=== PATIENT | male | born 1955 | race Caucasian/White ===

== ENCOUNTER 2021-02-21 16:06 | Emergency (ER) | payer MEDICARE, OTHER ==
[~2021-02-21 16:06] MED LIST: ASPIRIN81 MG PO; LOPRESSOR 25 MG25 MG PO; NORCO 5-325 TA1 EACH PO
[2021-02-21] MEDS ORDERED: NORFLEX 100 MG100 MG PO (20:54)
[2021-02-21] MEDS ORDERED: Voltaren Gel 1 % TOP (20:54)
== END 2021-02-21 21:00 | disposition home or self-care (01) ==
LOC: ER1 16:06
DX: S22.029A Unspecified fracture of second thoracic vertebra, initial encounter for closed fracture (principal); S16.1XXA Strain of muscle, fascia and tendon at neck level, initial encounter; W22.8XXA Striking against or struck by other objects, initial encounter
CPT/HCPCS: 72125; 99283

== ENCOUNTER 2022-01-15 14:02 | Emergency (ER) | payer MEDICARE, OTHER ==
[~2022-01-15 14:02] MED LIST changes: +NORFLEX 100 MG100 MG PO; +Voltaren Gel 1 % TOP
== END 2022-01-15 17:50 | disposition home or self-care (01) ==
LOC: ER1 14:02
DX: M25.531 Pain in right wrist (principal); Z87.891 Personal history of nicotine dependence; W18.30XA Fall on same level, unspecified, initial encounter
CPT/HCPCS: 29125; 73110; 99283